=== PATIENT | female | born 1975 | race Caucasian/White ===

== ENCOUNTER 2022-08-26 11:15 | Outpatient (RCR) | payer OTHER, SELFPAY ==
--- NOTE | 2022-04-10 17:29 | PT.OIE ---
Current Diagnoses Unspecified urinary incontinence (04/10/22) Visit Care Team Role Provider Type Tomeka Conway ND Primary Care Provider Non-Staff Specialty: Naturopathy Address: [address] [place] [address], [id number] Email: Elodia Garcia ND Attending Provider Non-Staff Family Provider Referring Provider Specialty: Naturopathy Address: [facility] Sandra Adams, [address], [address] Email: Physical Therapy Initial Evaluation PT-OP-A Visit Information Start: 04/10/22 08:56 Freq: Status: Active Protocol: Document 04/10/22 11:20 [facility] (Rec: 04/10/22 11:49 [facility] [id number]) Out-Patient Physical Therapy Visit Information Visit Information Visit Type Initial Evaluation Visit Start Time 11:20 Visit Stop Time 12:00 Total Visit Minutes 40 Visit Number 1 Evaluation Information Evaluation Date 04/10/22 PT-OP-B Current Condition Start: 04/10/22 08:56 Freq: Status: Active Protocol: Document 04/10/22 11:20 [facility] (Rec: 04/10/22 11:49 [facility] [id number]) Current Condition History of Current Condition Onset Date 2006 Current Complaints urinary stress incontinence, right sided hip pain and tightness History of Current Condition oldest is 20 years old, she started noticiing when her second one was a baby and now he is 18, she noticed when running or coughing, her second baby was breach and she did tear, the past 3-5 years she has notcied more leaking and now she notes she leaks more. Lifting can cause leakage. Her bladder does not wake her up at night. She notices hormonal cyclical differences. She has a small hernia on the inguinal region, once and awhile it will be tender. 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 Treatment Goals Patient/Caregiver Goals to reduce overall symptoms of urinary stress incontinence PT-OP-I Pelvic Floor Start: 04/10/22 08:56 Freq: Status: Active Protocol: Document 04/10/22 11:20 [facility] (Rec: 04/10/22 12:18 [facility] [id number]) Pelvic Floor Assessment Urine Pelvic Floor Surgery No Other Urinary Symptoms when menstruating Zaida can feel symptoms of pelvic pressure and heaviness Leakage Size Medium Leakage Cause Exercise,Lifting,Sneeze Leaks Per Day 5-6 per week Voiding Frequency 7-10 times per day Nocturia wakes 0-1 times per night Pelvic Clock Pelvic Clock 3-6 Guarding Prolapse Uterine Prolapse Grade 2 Contraction Ability Voluntary Contraction Weak Voluntary Relaxation Weak Manual Muscle Testing Left 3 Manual Muscle Testing Right 3 Manual Muscle Testing Anterior 3 Manual Muscle Testing Posterior 3 Muscle Endurance (Seconds) 3 Comments Pelvic Floor Comments poor endurance with pt fredo shalondaamara after 1-2 sec hold. Left side from 3-6 on the pelvic clock is guarded and tender. PT-OP-J Posture/Palpation/Skin Start: 04/10/22 08:56 Freq: Status: Active Protocol: Document 04/10/22 11:20 [facility] (Rec: 04/10/22 11:49 [facility] [id number]) Palpation Assessment Location right iliopsoas Palpation Location right iliopsoas Palpation Findings Soft Tissue Tightness,Muscle Guarding,Tenderness Palpation Details + rambo test left inguinal hernia Palpation Location left inguinal region Palpation Findings Tenderness Palpation Details small inguinal hernia on the left side PT-OP-K Range of Motion Start: 04/10/22 08:56 Freq: Status: Active Protocol: Document 04/10/22 11:20 [facility] (Rec: 04/10/22 11:49 [facility] [id number]) Hip Goniometric Range of Motion Hip Right Hip ROM WFL No Testing Position Supine Comments decreased R hip flexion due to c/o impingement, decreased Right hip extension and + rambo test Hip ROM Limitations Hip ROM Limitations Soft Tissue Tightness Comments right iliopsoas tightness, tightness in the quads on the right side, pt notes she feels impinged on the right. IF she tries to stretch her hip she will feel more irritated afterwards PT-OP-Q Treatments Start: 04/10/22 08:56 Freq: Status: Active Protocol: Document 04/10/22 11:20 [facility] (Rec: 04/10/22 12:12 [facility] [id number]) Therapeutic Exercises Supine Exercises pelvic floor long holds Reps/Minutes 10 sec on 10 sec off x 10 reps 3 times per day Self-Care/Home Management Treatment Education Patient Education Home Exercise Program Other Education pt was instructed in a HEP for pelvic floor strengthening as well as education on pelvic floor bracing prior to lifting PT-OP-T Assessment and Plan Start: 04/10/22 08:56 Freq: Status: Active Protocol: Document 04/10/22 11:20 [facility] (Rec: 04/10/22 13:15 [facility] [id number]) Physical Therapy Assessment Goals 4 Impairment + rambo test on the right with iliopsoas tightness Short Term Goal (STG) Zaida is educated on stretches for the hip flexors for a HEP STG Duration 4 weeks Cement Grinding Mill Operator Goal (LTG) Zaida demonstrates improved length of the iliopsoas on the right decreasing right anterior hip pain LTG Duration 12 weeks 3 Impairment urinary stress incontinence leaking 5-6 times per week with strong cough or sneeze or lifting Cement Grinding Mill Operator Goal (LTG) With improved pelvic floor strength Zaida reports a overall reduction in urinary leakage LTG Duration 12 weeks 2 Impairment Decreased strength of the pelvic floor Cement Grinding Mill Operator Goal (LTG) Zaida is able to increase her strength from grade 3/5 MMT to grade 4/5 MMT for improved pelvic organ support LTG Duration 12 weeks 1 Impairment Decreased endurance of the pelvic floor Short Term Goal (STG) Zaida is able to sustain a pelvic floor contraction in supine x 10 seconds STG Duration 4 weeks Cement Grinding Mill Operator Goal (LTG) Zaida is able to sustain a pelvic floor contraction in standing x 10 seconds LTG Duration 12 weeks Assessment Summary Assessment Zaida is a 46 year old female referred to Physical Therapy with symptoms of urinary stress incontinence that have been worsening over time since 2006. She has had 2 vaginal deliveries with tearing. Zaida reports 5-6 times per week she will experinece leakage with a strong cough or sneeze or heavy lifting. She is wanting to strengthen to prevent any further symptoms. She does report symptoms of pelvic pressure when she is menstruating. With examination today Zaida is able facilitate all parts of her levator ani however she lacks endurance to sustain a contraction more than a few seconds. She test 3/5 MMT for all parts of the levator ani. She does have some guarding in the pelvic floor from 3-6 on the pelvic clock. There is a second degree uterine prolapse assessed in the supine position. The right iliopsoas is tight and guarded and Zaida presents with hip pain with hip flexion past 90 degrees. Zaida would benefit from pelvic floor endurance training and strengthening, working on hip mobility and core stability for the SI joint. She is a good candidatefor PT Physical Therapy Plan Frequency and Duration Frequency of Treatment 1x/Week Duration of treatment (weeks) 12 Plan of Care Start Date 04/10/22 Plan of Care End Date 07/05/22 Therapeutic Interventions Therapeutic Interventions Home Exercise Program,Manual Therapy,Neuromuscular Re- education,Patient/Caregiver Education,Self-Care/Home Management,Soft Tissue Mobilization,Therapeutic Exercises Modalities Biofeedback,Cold Pack/Ice Massage,Electric Stimulation Next Visit Focus/Plan Next Note Type Treatment Note Next Visit Plan Begin EMG biofeedback next visit working on endurance holds of the pelvic floor.
--- NOTE | 2022-04-10 17:30 | PT.OPPOC ---
Physical, Occupational & Speech Therapy At [facility] Current Diagnoses Unspecified urinary incontinence (04/10/22) Visit Care Team Role Provider Type Tomeka Conway ND Primary Care Provider Non-Staff Specialty: Naturopathy Address: [address] [place] [address], [phone] Email: Elodia Garcia ND Attending Provider Non-Staff Family Provider Referring Provider Specialty: Naturopathy Address: [facility] Sandra [address], [address], [place], [address] Email: Plan Of Care PT-OP-T Assessment and Plan Start: 04/10/22 08:56 Freq: Status: Active Protocol: Document 04/10/22 11:20 [facility] (Rec: 04/10/22 13:15 [facility] [id number]) Physical Therapy Assessment Goals 4 Impairment + rambo test on the right with iliopsoas tightness Short Term Goal (STG) Zaida is educated on stretches for the hip flexors for a HEP STG Duration 4 weeks Long-Term Goal (LTG) Zaida demonstrates improved length of the iliopsoas on the right decreasing right anterior hip pain LTG Duration 12 weeks 3 Impairment urinary stress incontinence leaking 5-6 times per week with strong cough or sneeze or lifting Long-Term Goal (LTG) With improved pelvic floor strength Zaida reports a overall reduction in urinary leakage LTG Duration 12 weeks 2 Impairment Decreased strength of the pelvic floor Crutching Contractor Goal (LTG) Zaida is able to increase her strength from grade 3/5 MMT to grade 4/5 MMT for improved pelvic organ support LTG Duration 12 weeks 1 Impairment Decreased endurance of the pelvic floor Short Term Goal (STG) Zaida is able to sustain a pelvic floor contraction in supine x 10 seconds STG Duration 4 weeks Long-Term Goal (LTG) Zaida is able to sustain a pelvic floor contraction in standing x 10 seconds LTG Duration 12 weeks Assessment Summary Assessment Zaida is a 46 year old female referred to Physical Therapy with symptoms of urinary stress incontinence that have been worsening over time since 2006. She has had 2 vaginal deliveries with tearing. Zaida reports 5-6 times per week she will experience leakage with a strong cough or sneeze or heavy lifting. She is wanting to strengthen to prevent any further symptoms. She does report symptoms of pelvic pressure when she is menstruating. With examination today Zaida is able facilitate all parts of her levator ani however she lacks endurance to sustain a contraction more than a few seconds. She test 3/5 MMT for all parts of the levator ani. She does have some guarding in the pelvic floor from 3-6 on the pelvic clock. There is a second degree uterine prolapse assessed in the supine position. The right iliopsoas is tight and guarded and Zaida presents with hip pain with hip flexion past 90 degrees. Zaida would benefit from pelvic floor endurance training and strengthening, working on hip mobility and core stability for the SI joint. She is a good candidate for PT Physical Therapy Plan Frequency and Duration Frequency of Treatment 1x/Week Duration of treatment (weeks) 12 Plan of Care Start Date 04/10/22 Plan of Care End Date 07/05/22 Therapeutic Interventions Therapeutic Interventions Home Exercise Program,Manual Therapy,Neuromuscular Re- education,Patient/Caregiver Education,Self-Care/Home Management,Soft Tissue Mobilization,Therapeutic Exercises Modalities Biofeedback,Cold Pack/Ice Massage,Electric Stimulation Next Visit Focus/Plan Next Note Type Treatment Note Next Visit Plan Begin EMG biofeedback next visit working on endurance holds of the pelvic floor. Plan of Care Dates Plan of Care Start Date 04/10/22 Plan of Care End Date 07/05/22 Electronically Signed by: Rere Delgado, PT 04/15/22 6704 If you are in agreement with this Plan of Care, please return a signed and dated copy. I have reviewed this Plan of Care and certify that the skilled therapy services above are required to meet the patient?s needs. Physician Signature Date Printed Name and Credentials Clinical Instructor Signature Printed Name and Credentials
--- NOTE | 2022-04-17 17:18 | PT.OTN ---
Current Diagnoses Unspecified urinary incontinence (04/17/22) Physical Therapy Treatment Note PT-OP-A Visit Information Start: 04/10/22 08:56 Freq: Status: Active Protocol: Document 04/17/22 16:06 [facility] (Rec: 04/17/22 17:18 [facility] [id number]) Out-Patient Physical Therapy Visit Information Visit Information Visit Type Treatment Note Visit Start Time 16:05 Visit Stop Time 16:55 Total Visit Minutes 45 Visit Number 2 PT-OP-B Current Condition Start: 04/10/22 08:56 Freq: Status: Active Protocol: Document 04/10/22 11:20 [facility] (Rec: 04/10/22 11:49 [facility] [id number]) Current Condition History of Current Condition Onset Date 2006 Current Complaints urinary stress incontinence, right sided hip pain and tightness History of Current Condition oldest is 20 years old, she started noticiing when her second one was a baby and now he is 18, she noticed when running or coughing, her second baby was breach and she did tear, the past 3-5 years she has notcied more leaking and now she notes she leaks more. Lifting can cause leakage. Her bladder does not wake her up at night. She notices hormonal cyclical differences. She has a small hernia on the inguinal region, once and awhile it will be tender. 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 Treatment Goals Patient/Caregiver Goals to reduce overall symptoms of urinary stress incontinence PT-OP-C Subjective Start: 04/10/22 08:56 Freq: Status: Active Protocol: Document 04/17/22 16:06 [facility] (Rec: 04/17/22 17:17 [facility] [id number]) OP-PT Subjective Patient Comments Patient Comments pt notes when she is standing how much she is bracinwith her right hip , she also feels her right hip when doing her pelvic floor exercises wanting to guard. PT-OP-I Pelvic Floor Start: 04/10/22 08:56 Freq: Status: Active Protocol: Document 04/17/22 16:06 [facility] (Rec: 04/17/22 17:17 [facility] [id number]) Pelvic Floor Assessment Urine Pelvic Floor Surgery No Other Urinary Symptoms when menstruating Zaida can feel symptoms of pelvic pressure and heaviness Leakage Size Medium Leakage Cause Exercise,Lifting,Sneeze Leaks Per Day 5-6 per week Voiding Frequency 7-10 times per day Nocturia wakes 0-1 times per night Pelvic Clock Pelvic Clock 3-6 Guarding Comments Pelvic Floor Comments poor endurance with pt fredo anaya after 1-2 sec hold. Left side from 3-6 on the pelvic clock is guarded and tender. PT-OP-J Posture/Palpation/Skin Start: 04/10/22 08:56 Freq: Status: Active Protocol: Document 04/10/22 11:20 [facility] (Rec: 04/10/22 11:49 [facility] [id number]) Palpation Assessment Location right iliopsoas Palpation Location right iliopsoas Palpation Findings Soft Tissue Tightness,Muscle Guarding,Tenderness Palpation Details + rambo test left inguinal hernia Palpation Location left inguinal region Palpation Findings Tenderness Palpation Details small inguinal hernia on the left side PT-OP-K Range of Motion Start: 04/10/22 08:56 Freq: Status: Active Protocol: Document 04/10/22 11:20 [facility] (Rec: 04/10/22 11:49 [facility] [id number]) Hip Goniometric Range of Motion Hip Right Hip ROM WFL No Testing Position Supine Comments decreased R hip flexion due to c/o impingement, decreased Right hip extension and + rambo test Hip ROM Limitations Hip ROM Limitations Soft Tissue Tightness Comments right iliopsoas tightness, tightness in the quads on the right side, pt notes she feels impinged on the right. IF she tries to stretch her hip she will feel more irritated afterwards PT-OP-Q Treatments Start: 04/10/22 08:56 Freq: Status: Active Protocol: Document 04/17/22 16:06 [facility] (Rec: 04/17/22 17:17 [facility] [id number]) Therapeutic Exercises Supine Exercises quick flicks Reps/Minutes x 10 reps pelvic floor long holds Reps/Minutes 24.4 44 max Sidelying Exercises clam shells Reps/Minutes 2 x10 Other Exercises cat cow Reps/Minutes x 10 reps Manual Therapy Treatment Manual Techniques gentle hip distraction Comments worked both in supine and quadruped for hip distraction lateral distraction helped some in quadruped but did not fully take off pain Neuro Re-Education Treatment Other Activities NMES Details NMES for the levator ani Comments trial of NMES as Zaida has the yarlap at home and wants to be able to use it but felt she over did it last time she tried to use it. Zaida tolerated NMES at at low level today PT-OP-T Assessment and Plan Start: 04/10/22 08:56 Freq: Status: Active Protocol: Document 04/17/22 16:06 [facility] (Rec: 04/17/22 17:17 [facility] [id number]) Physical Therapy Assessment Goals 4 Impairment + rambo test on the right with iliopsoas tightness Short Term Goal (STG) Zaida is educated on stretches for the hip flexors for a HEP STG Duration 4 weeks Electronic Prepress System Operator Goal (LTG) Zaida demonstrates improved length of the iliopsoas on the right decreasing right anterior hip pain LTG Duration 12 weeks 3 Impairment urinary stress incontinence leaking 5-6 times per week with strong cough or sneeze or lifting Electronic Prepress System Operator Goal (LTG) With improved pelvic floor strength Zaida reports a overall reduction in urinary leakage LTG Duration 12 weeks 2 Impairment Decreased strength of the pelvic floor Electronic Prepress System Operator Goal (LTG) Zaida is able to increase her strength from grade 3/5 MMT to grade 4/5 MMT for improved pelvic organ support LTG Duration 12 weeks 1 Impairment Decreased endurance of the pelvic floor Short Term Goal (STG) Zaida is able to sustain a pelvic floor contraction in supine x 10 seconds STG Duration 4 weeks Electronic Prepress System Operator Goal (LTG) Zaida is able to sustain a pelvic floor contraction in standing x 10 seconds LTG Duration 12 weeks Assessment Summary Assessment pelvic floor was elevated inititally at 5, pt able to get to 1.5 uv then to baseline when laying on her side. Her hip does bother her in supine and this may increase her pelvic floor tone. Endurance looked better today and Zaida has been working on her exercises at home. I added in quick contractions as well as clam shells for her. She mentioned today she had mild hip dysplasia as a child Physical Therapy Plan Frequency and Duration Frequency of Treatment 1x/Week Duration of treatment (weeks) 12 Plan of Care Start Date 04/10/22 Plan of Care End Date 07/05/22 Therapeutic Interventions Therapeutic Interventions Home Exercise Program,Manual Therapy,Neuromuscular Re- education,Patient/Caregiver Education,Self-Care/Home Management,Soft Tissue Mobilization,Therapeutic Exercises Modalities Biofeedback,Cold Pack/Ice Massage,Electric Stimulation Next Visit Focus/Plan Next Note Type Treatment Note Next Visit Plan continue working on relaxing the right quad and iliopsoas, work on endurance holds for the pelvic floor
--- NOTE | 2022-04-22 17:35 | PT.OTN ---
Current Diagnoses Unspecified urinary incontinence (04/22/22) Physical Therapy Treatment Note PT-OP-A Visit Information Start: 04/10/22 08:56 Freq: Status: Active Protocol: Document 04/22/22 11:31 [facility] (Rec: 04/22/22 12:28 [facility] [id number]) Out-Patient Physical Therapy Visit Information Visit Information Visit Type Treatment Note Visit Start Time 11:30 Visit Stop Time 12:15 Total Visit Minutes 45 Visit Number 3 PT-OP-B Current Condition Start: 04/10/22 08:56 Freq: Status: Active Protocol: Document 04/10/22 11:20 [facility] (Rec: 04/10/22 11:49 [facility] [id number]) Current Condition History of Current Condition Onset Date 2006 Current Complaints urinary stress incontinence, right sided hip pain and tightness History of Current Condition oldest is 20 years old, she started noticiing when her second one was a baby and now he is 18, she noticed when running or coughing, her second baby was breach and she did tear, the past 3-5 years she has notcied more leaking and now she notes she leaks more. Lifting can cause leakage. Her bladder does not wake her up at night. She notices hormonal cyclical differences. She has a small hernia on the inguinal region, once and awhile it will be tender. 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 Treatment Goals Patient/Caregiver Goals to reduce overall symptoms of urinary stress incontinence PT-OP-C Subjective Start: 04/10/22 08:56 Freq: Status: Active Protocol: Document 04/22/22 11:31 [facility] (Rec: 04/22/22 12:28 [facility] [id number]) OP-PT Subjective Patient Comments Patient Comments pt notes she got late last , she had a 4 hour flight and had to get on the shuttle afterwards With the clam shells she notes the right side is very weak and it fatigues very fast PT-OP-I Pelvic Floor Start: 04/10/22 08:56 Freq: Status: Active Protocol: Document 04/17/22 16:06 [facility] (Rec: 04/17/22 17:17 [facility] [id number]) Pelvic Floor Assessment Urine Pelvic Floor Surgery No Other Urinary Symptoms when menstruating Zaida can feel symptoms of pelvic pressure and heaviness Leakage Size Medium Leakage Cause Exercise,Lifting,Sneeze Leaks Per Day 5-6 per week Voiding Frequency 7-10 times per day Nocturia wakes 0-1 times per night Pelvic Clock Pelvic Clock 3-6 Guarding Comments Pelvic Floor Comments poor endurance with pt annjamal anaya after 1-2 sec hold. Left side from 3-6 on the pelvic clock is guarded and tender. PT-OP-J Posture/Palpation/Skin Start: 04/10/22 08:56 Freq: Status: Active Protocol: Document 04/10/22 11:20 [facility] (Rec: 04/10/22 11:49 [facility] [id number]) Palpation Assessment Location right iliopsoas Palpation Location right iliopsoas Palpation Findings Soft Tissue Tightness,Muscle Guarding,Tenderness Palpation Details + rambo test left inguinal hernia Palpation Location left inguinal region Palpation Findings Tenderness Palpation Details small inguinal hernia on the left side PT-OP-K Range of Motion Start: 04/10/22 08:56 Freq: Status: Active Protocol: Document 04/10/22 11:20 [facility] (Rec: 04/10/22 11:49 [facility] [id number]) Hip Goniometric Range of Motion Hip Right Hip ROM WFL No Testing Position Supine Comments decreased R hip flexion due to c/o impingement, decreased Right hip extension and + rambo test Hip ROM Limitations Hip ROM Limitations Soft Tissue Tightness Comments right iliopsoas tightness, tightness in the quads on the right side, pt notes she feels impinged on the right. IF she tries to stretch her hip she will feel more irritated afterwards PT-OP-Q Treatments Start: 04/10/22 08:56 Freq: Status: Active Protocol: Document 04/22/22 11:31 [facility] (Rec: 04/22/22 12:28 [facility] [id number]) Therapeutic Exercises Supine Exercises roll outs with theraband Reps/Minutes x 5 supine ball squeeze with pelvic floor contraction Reps/Minutes x 10 reps Comments holding for 5 and relaxing x 5 , this helped reduce pelvic floor tone pelvic floor long holds Reps/Minutes 22.1 36.3 Manual Therapy Treatment Soft Tissue Mobilization right quad and iliopsoas Body Position Supine Manual Techniques manual hip posterior glides Body Position Supine Comments good tolerance for posterior glides and pt notes good relief gentle hip distraction Type right hip Comments today worked in supine only for manual hip distraction in hip flexion position PT-OP-T Assessment and Plan Start: 04/10/22 08:56 Freq: Status: Active Protocol: Document 04/22/22 11:31 [facility] (Rec: 04/22/22 12:28 [facility] [id number]) Physical Therapy Assessment Goals 4 Impairment + rambo test on the right with iliopsoas tightness Short Term Goal (STG) Zaida is educated on stretches for the hip flexors for a HEP STG Duration 4 weeks Senior Care Goal (LTG) Zaida demonstrates improved length of the iliopsoas on the right decreasing right anterior hip pain LTG Duration 12 weeks 3 Impairment urinary stress incontinence leaking 5-6 times per week with strong cough or sneeze or lifting Commercial Coordinator Goal (LTG) With improved pelvic floor strength Zaida reports a overall reduction in urinary leakage LTG Duration 12 weeks 2 Impairment Decreased strength of the pelvic floor Senior Care Goal (LTG) Zaida is able to increase her strength from grade 3/5 MMT to grade 4/5 MMT for improved pelvic organ support LTG Duration 12 weeks 1 Impairment Decreased endurance of the pelvic floor Short Term Goal (STG) Zaida is able to sustain a pelvic floor contraction in supine x 10 seconds STG Duration 4 weeks Commercial Coordinator Goal (LTG) Zaida is able to sustain a pelvic floor contraction in standing x 10 seconds LTG Duration 12 weeks Assessment Summary Assessment pt notes that clam shells irritated her hip some so roll outs were tried today. This was still a little tight on her hip but she is going to test it out for home Physical Therapy Plan Frequency and Duration Frequency of Treatment 1x/Week Duration of treatment (weeks) 12 Plan of Care Start Date 04/10/22 Plan of Care End Date 07/05/22 Therapeutic Interventions Therapeutic Interventions Home Exercise Program,Manual Therapy,Neuromuscular Re- education,Patient/Caregiver Education,Self-Care/Home Management,Soft Tissue Mobilization,Therapeutic Exercises Modalities Biofeedback,Cold Pack/Ice Massage,Electric Stimulation Next Visit Focus/Plan Next Note Type Treatment Note Next Visit Plan continue releasing the iliopsoas on the right, begin TA stabilization exercises, continue with pelvic floor
--- NOTE | 2022-04-29 12:22 | PT.OTN ---
Current Diagnoses Unspecified urinary incontinence (04/29/22) Physical Therapy Treatment Note PT-OP-A Visit Information Start: 04/10/22 08:56 Freq: Status: Active Protocol: Document 04/29/22 11:18 [facility] (Rec: 04/29/22 12:22 [facility] [id number]) Out-Patient Physical Therapy Visit Information Visit Information Visit Type Treatment Note Visit Start Time 11:15 Visit Stop Time 12:00 Total Visit Minutes 45 Visit Number 4 PT-OP-B Current Condition Start: 04/10/22 08:56 Freq: Status: Active Protocol: Document 04/10/22 11:20 [facility] (Rec: 04/10/22 11:49 [facility] [id number]) Current Condition History of Current Condition Onset Date 2006 Current Complaints urinary stress incontinence, right sided hip pain and tightness History of Current Condition oldest is 20 years old, she started noticiing when her second one was a baby and now he is 18, she noticed when running or coughing, her second baby was breach and she did tear, the past 3-5 years she has notcied more leaking and now she notes she leaks more. Lifting can cause leakage. Her bladder does not wake her up at night. She notices hormonal cyclical differences. She has a small hernia on the inguinal region, once and awhile it will be tender. 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 She does feel her pelvic floor is getting stronger and no leaks this past week She has been able to use the yarlap 8 sec on and 8 sec off and has tolerated it well. PT-OP-I Pelvic Floor Start: 04/10/22 08:56 Freq: Status: Active Protocol: Document 04/17/22 16:06 [facility] (Rec: 04/17/22 17:17 [facility] [id number]) Pelvic Floor Assessment Urine Pelvic Floor Surgery No Other Urinary Symptoms when menstruating Zaida can feel symptoms of pelvic pressure and heaviness Leakage Size Medium Leakage Cause Exercise,Lifting,Sneeze Leaks Per Day 5-6 per week Voiding Frequency 7-10 times per day Nocturia wakes 0-1 times per night Pelvic Clock Pelvic Clock 3-6 Guarding Comments Pelvic Floor Comments poor endurance with pt zayabhishek anaya after 1-2 sec hold. Left side from 3-6 on the pelvic clock is guarded and tender. PT-OP-J Posture/Palpation/Skin Start: 04/10/22 08:56 Freq: Status: Active Protocol: Document 04/10/22 11:20 [facility] (Rec: 04/10/22 11:49 [facility] [id number]) Palpation Assessment Location right iliopsoas Palpation Location right iliopsoas Palpation Findings Soft Tissue Tightness,Muscle Guarding,Tenderness Palpation Details + rambo test left inguinal hernia Palpation Location left inguinal region Palpation Findings Tenderness Palpation Details small inguinal hernia on the left side PT-OP-K Range of Motion Start: 04/10/22 08:56 Freq: Status: Active Protocol: Document 04/10/22 11:20 [facility] (Rec: 04/10/22 11:49 [facility] [id number]) Hip Goniometric Range of Motion Hip Right Hip ROM WFL No Testing Position Supine Comments decreased R hip flexion due to c/o impingement, decreased Right hip extension and + rambo test Hip ROM Limitations Hip ROM Limitations Soft Tissue Tightness Comments right iliopsoas tightness, tightness in the quads on the right side, pt notes she feels impinged on the right. IF she tries to stretch her hip she will feel more irritated afterwards PT-OP-Q Treatments Start: 04/10/22 08:56 Freq: Status: Active Protocol: Document 04/29/22 11:18 [facility] (Rec: 04/29/22 12:22 [facility] [id number]) Therapeutic Exercises Supine Exercises quick flicks Reps/Minutes x 10 reps pelvic floor long holds Reps/Minutes 24.4 uv max 38. Other Exercises templates for eccentric control and coordination Reps/Minutes x 10 reps Comments templates for eccentric control Self-Care/Home Management Treatment Education Patient Education Home Exercise Program Other Education pt educated in [facility] for eccentric contraction of her pelvic floor. She was educated on bracing with her pelvic floor prior to lifting. Added in dynamic hamstring stretching PT-OP-T Assessment and Plan Start: 04/10/22 08:56 Freq: Status: Active Protocol: Document 04/29/22 11:18 [facility] (Rec: 04/29/22 12:22 [facility] [id number]) Physical Therapy Assessment Goals 4 Impairment + rambo test on the right with iliopsoas tightness Short Term Goal (STG) Zaida is educated on stretches for the hip flexors for a HEP STG Duration 4 weeks Program Counselor Goal (LTG) Zaida demonstrates improved length of the iliopsoas on the right decreasing right anterior hip pain LTG Duration 12 weeks 3 Impairment urinary stress incontinence leaking 5-6 times per week with strong cough or sneeze or lifting Program Counselor Goal (LTG) With improved pelvic floor strength Zaida reports a overall reduction in urinary leakage LTG Duration 12 weeks 2 Impairment Decreased strength of the pelvic floor Program Counselor Goal (LTG) Zaida is able to increase her strength from grade 3/5 MMT to grade 4/5 MMT for improved pelvic organ support LTG Duration 12 weeks 1 Impairment Decreased endurance of the pelvic floor Short Term Goal (STG) Zaida is able to sustain a pelvic floor contraction in supine x 10 seconds STG Duration 4 weeks Program Counselor Goal (LTG) Zaida is able to sustain a pelvic floor contraction in standing x 10 seconds LTG Duration 12 weeks Assessment Summary Assessment Zaida is flared in her right hip and it seems if she tries to stretch her right hip anteriorly she is in more of a flare. She does have a history of hip dysplasia as a child. Today we worked on releasing the posterior hip with dynamic hamstring stretch . I also added in templates for eccentric control. She tolerated this well. Physical Therapy Plan Frequency and Duration Frequency of Treatment 1x/Week Duration of treatment (weeks) 12 Plan of Care Start Date 04/10/22 Plan of Care End Date 07/05/22 Therapeutic Interventions Therapeutic Interventions Home Exercise Program,Manual Therapy,Neuromuscular Re- education,Patient/Caregiver Education,Self-Care/Home Management,Soft Tissue Mobilization,Therapeutic Exercises Modalities Biofeedback,Cold Pack/Ice Massage,Electric Stimulation Next Visit Focus/Plan Next Note Type Treatment Note Next Visit Plan Work on TA in quadruped next visit prior to pelvic floor with EMG biofeedback, add in TA with marches in supine
--- NOTE | 2022-05-07 11:43 | PT.OTN ---
Current Diagnoses Unspecified urinary incontinence (05/06/22) Physical Therapy Treatment Note PT-OP-A Visit Information Start: 04/10/22 08:56 Freq: Status: Active Protocol: Document 05/06/22 11:30 [facility] (Rec: 05/06/22 12:26 [facility] [id number]) Out-Patient Physical Therapy Visit Information Visit Information Visit Type Treatment Note Visit Start Time 11:30 Visit Stop Time 12:15 Total Visit Minutes 45 Visit Number 5 PT-OP-B Current Condition Start: 04/10/22 08:56 Freq: Status: Active Protocol: Document 04/10/22 11:20 [facility] (Rec: 04/10/22 11:49 [facility] [id number]) Current Condition History of Current Condition Onset Date 2006 Current Complaints urinary stress incontinence, right sided hip pain and tightness History of Current Condition oldest is 20 years old, she started noticiing when her second one was a baby and now he is 18, she noticed when running or coughing, her second baby was breach and she did tear, the past 3-5 years she has notcied more leaking and now she notes she leaks more. Lifting can cause leakage. Her bladder does not wake her up at night. She notices hormonal cyclical differences. She has a small hernia on the inguinal region, once and awhile it will be tender. 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 Treatment Goals Patient/Caregiver Goals to reduce overall symptoms of urinary stress incontinence PT-OP-C Subjective Start: 04/10/22 08:56 Freq: Status: Active Protocol: Document 05/06/22 11:30 [facility] (Rec: 05/06/22 12:26 [facility] [id number]) OP-PT Subjective Patient Comments Patient Comments Pt notes she has not had any leakage, her hip and her back hurts PT-OP-I Pelvic Floor Start: 04/10/22 08:56 Freq: Status: Active Protocol: Document 04/17/22 16:06 [facility] (Rec: 04/17/22 17:17 [facility] [id number]) Pelvic Floor Assessment Urine Pelvic Floor Surgery No Other Urinary Symptoms when menstruating Zaida can feel symptoms of pelvic pressure and heaviness Leakage Size Medium Leakage Cause Exercise,Lifting,Sneeze Leaks Per Day 5-6 per week Voiding Frequency 7-10 times per day Nocturia wakes 0-1 times per night Pelvic Clock Pelvic Clock 3-6 Guarding Comments Pelvic Floor Comments poor endurance with pt fredo anaya after 1-2 sec hold. Left side from 3-6 on the pelvic clock is guarded and tender. PT-OP-J Posture/Palpation/Skin Start: 04/10/22 08:56 Freq: Status: Active Protocol: Document 04/10/22 11:20 [facility] (Rec: 04/10/22 11:49 [facility] [id number]) Palpation Assessment Location right iliopsoas Palpation Location right iliopsoas Palpation Findings Soft Tissue Tightness,Muscle Guarding,Tenderness Palpation Details + rambo test left inguinal hernia Palpation Location left inguinal region Palpation Findings Tenderness Palpation Details small inguinal hernia on the left side PT-OP-K Range of Motion Start: 04/10/22 08:56 Freq: Status: Active Protocol: Document 04/10/22 11:20 [facility] (Rec: 04/10/22 11:49 [facility] [id number]) Hip Goniometric Range of Motion Hip Right Hip ROM WFL No Testing Position Supine Comments decreased R hip flexion due to c/o impingement, decreased Right hip extension and + rambo test Hip ROM Limitations Hip ROM Limitations Soft Tissue Tightness Comments right iliopsoas tightness, tightness in the quads on the right side, pt notes she feels impinged on the right. IF she tries to stretch her hip she will feel more irritated afterwards PT-OP-Q Treatments Start: 04/10/22 08:56 Freq: Status: Active Protocol: Document 05/06/22 11:30 [facility] (Rec: 05/06/22 12:26 [facility] [id number]) Therapeutic Exercises Supine Exercises TA with heel slides Reps/Minutes x 5 reps each supine TA with marches Reps/Minutes 10-20 reps supine ball squeeze with pelvic floor contraction Reps/Minutes x 10 reps quick flicks Reps/Minutes x 10 reps pelvic floor long holds Reps/Minutes 27.8 average max 37.8 Other Exercises quadruped TA isolations Reps/Minutes x 10 templates for eccentric control and coordination Reps/Minutes x 10 reps Comments templates for eccentric control cat cow Reps/Minutes x 10 reps PT-OP-T Assessment and Plan Start: 04/10/22 08:56 Freq: Status: Active Protocol: Document 05/06/22 11:25 [facility] (Rec: 05/07/22 11:43 [facility] [id number]) Physical Therapy Assessment Assessment Summary Assessment Zaida continues to show improvement with her pelvic floor endurance strength on EMG biofeedback. She tolerated additional TA stabilization exercises added in today. Physical Therapy Plan Frequency and Duration Frequency of Treatment 1x/Week Duration of treatment (weeks) 12 Plan of Care Start Date 04/10/22 Plan of Care End Date 07/05/22 Therapeutic Interventions Therapeutic Interventions Home Exercise Program,Manual Therapy,Neuromuscular Re- education,Patient/Caregiver Education,Self-Care/Home Management,Soft Tissue Mobilization,Therapeutic Exercises Modalities Biofeedback,Cold Pack/Ice Massage,Electric Stimulation Next Visit Focus/Plan Next Note Type Treatment Note Next Visit Plan continue to work on TA stabilization exercises, add in sidebends in quadruped next visit
--- NOTE | 2022-05-13 14:12 | PT.OTN ---
Current Diagnoses Unspecified urinary incontinence (05/13/22) Physical Therapy Treatment Note PT-OP-A Visit Information Start: 04/10/22 08:56 Freq: Status: Active Protocol: Document 05/13/22 11:21 [facility] (Rec: 05/14/22 14:10 [facility] [id number]) Out-Patient Physical Therapy Visit Information Visit Information Visit Type Treatment Note Visit Start Time 11:20 Visit Stop Time 12:05 Total Visit Minutes 45 Visit Number 6 PT-OP-B Current Condition Start: 04/10/22 08:56 Freq: Status: Active Protocol: Document 04/10/22 11:20 [facility] (Rec: 04/10/22 11:49 [facility] [id number]) Current Condition History of Current Condition Onset Date 2006 Current Complaints urinary stress incontinence, right sided hip pain and tightness History of Current Condition oldest is 20 years old, she started noticiing when her second one was a baby and now he is 18, she noticed when running or coughing, her second baby was breach and she did tear, the past 3-5 years she has notcied more leaking and now she notes she leaks more. Lifting can cause leakage. Her bladder does not wake her up at night. She notices hormonal cyclical differences. She has a small hernia on the inguinal region, once and awhile it will be tender. 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 Treatment Goals Patient/Caregiver Goals to reduce overall symptoms of urinary stress incontinence PT-OP-C Subjective Start: 04/10/22 08:56 Freq: Status: Active Protocol: Document 05/13/22 11:21 [facility] (Rec: 05/13/22 12:10 [facility] [id number]) OP-PT Subjective Patient Comments Patient Comments pt notes that if her hip gets aggravated then it gets everything off, gusha scraping really helps, she does notice tenderness in the midial quad . SHe is finishing her period and she can tell a difference when she is on her cycle, she feels closer to leaking when on her cycle but she hasn't leaked PT-OP-I Pelvic Floor Start: 04/10/22 08:56 Freq: Status: Active Protocol: Document 04/17/22 16:06 [facility] (Rec: 04/17/22 17:17 [facility] [id number]) Pelvic Floor Assessment Urine Pelvic Floor Surgery No Other Urinary Symptoms when menstruating Zaida can feel symptoms of pelvic pressure and heaviness Leakage Size Medium Leakage Cause Exercise,Lifting,Sneeze Leaks Per Day 5-6 per week Voiding Frequency 7-10 times per day Nocturia wakes 0-1 times per night Pelvic Clock Pelvic Clock 3-6 Guarding Comments Pelvic Floor Comments poor endurance with pt fredo anaya after 1-2 sec hold. Left side from 3-6 on the pelvic clock is guarded and tender. PT-OP-J Posture/Palpation/Skin Start: 04/10/22 08:56 Freq: Status: Active Protocol: Document 04/10/22 11:20 [facility] (Rec: 04/10/22 11:49 [facility] [id number]) Palpation Assessment Location right iliopsoas Palpation Location right iliopsoas Palpation Findings Soft Tissue Tightness,Muscle Guarding,Tenderness Palpation Details + rambo test left inguinal hernia Palpation Location left inguinal region Palpation Findings Tenderness Palpation Details small inguinal hernia on the left side PT-OP-K Range of Motion Start: 04/10/22 08:56 Freq: Status: Active Protocol: Document 04/10/22 11:20 [facility] (Rec: 04/10/22 11:49 [facility] [id number]) Hip Goniometric Range of Motion Hip Right Hip ROM WFL No Testing Position Supine Comments decreased R hip flexion due to c/o impingement, decreased Right hip extension and + rambo test Hip ROM Limitations Hip ROM Limitations Soft Tissue Tightness Comments right iliopsoas tightness, tightness in the quads on the right side, pt notes she feels impinged on the right. IF she tries to stretch her hip she will feel more irritated afterwards PT-OP-Q Treatments Start: 04/10/22 08:56 Freq: Status: Active Protocol: Document 05/13/22 11:21 [facility] (Rec: 05/13/22 12:10 [facility] [id number]) Therapeutic Exercises Supine Exercises the hundred pilates exercises Reps/Minutes pt to work up to 100 reps as she is able TA with SLR Reps/Minutes x 10 -15 Other Exercises quadruped sidebends Reps/Minutes x 5 each side Manual Therapy Treatment Soft Tissue Mobilization right quad and iliopsoas Body Position Supine Comments gusha was used over the quad in iliopsoas, pt has a gusha at home and requested assistance on how to use PT-OP-T Assessment and Plan Start: 04/10/22 08:56 Freq: Status: Active Protocol: Document 05/13/22 11:21 [facility] (Rec: 05/14/22 14:10 [facility] [id number]) Physical Therapy Assessment Assessment Summary Assessment Worked on increasing TA stabilization exercises today as well as MFR over the right quadriceps with the gusha as pt has this at home and wanted to be able to use it. Physical Therapy Plan Frequency and Duration Frequency of Treatment 1x/Week Duration of treatment (weeks) 12 Plan of Care Start Date 04/10/22 Plan of Care End Date 07/05/22 Therapeutic Interventions Therapeutic Interventions Home Exercise Program,Manual Therapy,Neuromuscular Re- education,Patient/Caregiver Education,Self-Care/Home Management,Soft Tissue Mobilization,Therapeutic Exercises Modalities Biofeedback,Cold Pack/Ice Massage,Electric Stimulation Next Visit Focus/Plan Next Note Type Treatment Note Next Visit Plan revisit pelvic floor strength next visit and see how Zaida is doing with her MFR techniques for home
--- NOTE | 2022-06-24 15:11 | PT.OTN ---
Current Diagnoses Unspecified urinary incontinence (06/24/22) Physical Therapy Treatment Note PT-OP-A Visit Information Start: 04/10/22 08:56 Freq: Status: Active Protocol: Document 06/24/22 13:03 [facility] (Rec: 06/24/22 13:17 [facility] [id number]) Out-Patient Physical Therapy Visit Information Visit Information Visit Type Progress Note Visit Start Time 13:00 Visit Stop Time 13:45 Total Visit Minutes 45 Visit Number 7 PT-OP-B Current Condition Start: 04/10/22 08:56 Freq: Status: Active Protocol: Document 04/10/22 11:20 [facility] (Rec: 04/10/22 11:49 [facility] [id number]) Current Condition History of Current Condition Onset Date 2006 Current Complaints urinary stress incontinence, right sided hip pain and tightness History of Current Condition oldest is 20 years old, she started noticiing when her second one was a baby and now he is 18, she noticed when running or coughing, her second baby was breach and she did tear, the past 3-5 years she has notcied more leaking and now she notes she leaks more. Lifting can cause leakage. Her bladder does not wake her up at night. She notices hormonal cyclical differences. She has a small hernia on the inguinal region, once and awhile it will be tender. 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 Treatment Goals Patient/Caregiver Goals to reduce overall symptoms of urinary stress incontinence PT-OP-C Subjective Start: 04/10/22 08:56 Freq: Status: Active Protocol: Document 06/24/22 13:03 [facility] (Rec: 06/24/22 13:17 [facility] [id number]) OP-PT Subjective Patient Comments Patient Comments pt reports her thyroid was really off so she hasn't been working on exercises as much as she has been so tired. She hasn't been noting as much pelvic floor issues and overall she has not been experiencing the leakage she was. Patient Reported Progress Improving PT-OP-I Pelvic Floor Start: 04/10/22 08:56 Freq: Status: Active Protocol: Document 06/24/22 13:17 [facility] (Rec: 06/24/22 13:24 [facility] [id number]) Pelvic Floor Assessment Contraction Ability Voluntary Contraction Moderate Voluntary Relaxation Moderate Manual Muscle Testing Left 4 Manual Muscle Testing Right 4 Manual Muscle Testing Anterior 4 Manual Muscle Testing Posterior 4 PT-OP-J Posture/Palpation/Skin Start: 04/10/22 08:56 Freq: Status: Active Protocol: Document 04/10/22 11:20 [facility] (Rec: 04/10/22 11:49 [facility] [id number]) Palpation Assessment Location right iliopsoas Palpation Location right iliopsoas Palpation Findings Soft Tissue Tightness,Muscle Guarding,Tenderness Palpation Details + rambo test left inguinal hernia Palpation Location left inguinal region Palpation Findings Tenderness Palpation Details small inguinal hernia on the left side PT-OP-K Range of Motion Start: 04/10/22 08:56 Freq: Status: Active Protocol: Document 04/10/22 11:20 [facility] (Rec: 04/10/22 11:49 [facility] [id number]) Hip Goniometric Range of Motion Hip Right Hip ROM WFL No Testing Position Supine Comments decreased R hip flexion due to c/o impingement, decreased Right hip extension and + rambo test Hip ROM Limitations Hip ROM Limitations Soft Tissue Tightness Comments right iliopsoas tightness, tightness in the quads on the right side, pt notes she feels impinged on the right. IF she tries to stretch her hip she will feel more irritated afterwards PT-OP-Q Treatments Start: 04/10/22 08:56 Freq: Status: Active Protocol: Document 06/24/22 13:00 [facility] (Rec: 06/24/22 15:11 [facility] [id number]) Therapeutic Exercises Supine Exercises supine happy baby Reps/Minutes hold 1-2 min piriformis stretch Reps/Minutes hold 1-2 min pelvic floor long holds Reps/Minutes 27 average and max of 37 Other Exercises olesya pose Reps/Minutes hold 1-2 min quadruped rock back Reps/Minutes x 20 Comments this was done with a lateral glide from mobilization belt Manual Therapy Treatment Manual Techniques manual hip posterior glides Body Position Supine Comments good tolerance for posterior glides and pt notes good relief gentle hip distraction Type right hip Comments today worked in supine and quadruped with mobilization with movement lateral hip distraction with hip flexion and ER. Pt notes good tolerance PT-OP-T Assessment and Plan Start: 04/10/22 08:56 Freq: Status: Active Protocol: Document 06/24/22 13:03 [facility] (Rec: 06/24/22 13:17 [facility] [id number]) Physical Therapy Assessment Goals 4 Impairment + rambo test on the right with iliopsoas tightness Short Term Goal (STG) Zaida is educated on stretches for the hip flexors for a HEP STG Duration 4 weeks Nursing Home Goal (LTG) Zaida demonstrates improved length of the iliopsoas on the right decreasing right anterior hip pain Anterior hip pain is still a issue for Zaida LTG Duration 12 weeks 3 Impairment urinary stress incontinence leaking 5-6 times per week with strong cough or sneeze or lifting Data Entry Machine Operator Goal (LTG) With improved pelvic floor strength Zaida reports a overall reduction in urinary leakage Zaida has significant reduction in leakage, she does feel close to leaking sometimes LTG Duration 12 weeks 2 Impairment Decreased strength of the pelvic floor Nursing Home Goal (LTG) Zaida is able to increase her strength from grade 3/5 MMT to grade 4/5 MMT for improved pelvic organ support GOAL MET to 4/5 MMT LTG Duration 12 weeks 1 Impairment Decreased endurance of the pelvic floor Short Term Goal (STG) Zaida is able to sustain a pelvic floor contraction in supine x 10 seconds GOAL MET STG Duration 4 weeks Data Entry Machine Operator Goal (LTG) Zaida is able to sustain a pelvic floor contraction in standing x 10 seconds Zaida is starting to work on standing pelvic floor exercises now LTG Duration 12 weeks Assessment Summary Assessment Zaida returns to PT today after not being seen since May 13. She has been seen for a total of 7 visits. She is doing better overall with her pelvic floor and she will start to work on pelvic floor isolations in upright positions. She has been dealing with thyroid issues and has not been able to work on her exercises as much due to fatigue. She is still feeling the right sided anterior hip pain. Her stretches were reviewed and I added in some self capsule stretching today which she tolerated well. Zaida would benefit from continued PT to address pelvic floor strength in upright positions and working to decrease c/o anterior hip pain Physical Therapy Plan Frequency and Duration Frequency of Treatment 1x/Week Duration of treatment (weeks) 12 Plan of Care Start Date 06/24/22 Plan of Care End Date 08/24/22 Therapeutic Interventions Therapeutic Interventions Home Exercise Program,Manual Therapy,Neuromuscular Re- education,Patient/Caregiver Education,Self-Care/Home Management,Soft Tissue Mobilization,Therapeutic Exercises Modalities Biofeedback,Cold Pack/Ice Massage,Electric Stimulation Next Visit Focus/Plan Next Note Type Treatment Note Next Visit Plan Begin EMG biofeedback in standing and work on capsule stretches of the right hip
--- NOTE | 2022-06-24 15:12 | PT.OPPOC ---
Physical, Occupational & Speech Therapy At [facility] Current Diagnoses Unspecified urinary incontinence (06/24/22) Visit Care Team Role Provider Type Tomeka Conway ND Primary Care Provider Non-Staff Specialty: Naturopathy Address: [address] [place] [address], [id number] Email: Elodia Garcia ND Attending Provider Non-Staff Family Provider Referring Provider Specialty: Naturopathy Address: [facility] [address], [address], [address] Email: Plan Of Care PT-OP-T Assessment and Plan Start: 04/10/22 08:56 Freq: Status: Active Protocol: Document 06/24/22 13:03 [facility] (Rec: 06/24/22 13:17 [facility] [id number]) Physical Therapy Assessment Goals 4 Impairment + rambo test on the right with iliopsoas tightness Short Term Goal (STG) Zaida is educated on stretches for the hip flexors for a HEP STG Duration 4 weeks [facility] Goal (LTG) Zaida demonstrates improved length of the iliopsoas on the right decreasing right anterior hip pain Anterior hip pain is still a issue for Zaida LTG Duration 12 weeks 3 Impairment urinary stress incontinence leaking 5-6 times per week with strong cough or sneeze or lifting [facility] Goal (LTG) With improved pelvic floor strength Zaida reports a overall reduction in urinary leakage Zaida has significant reduction in leakage, she does feel close to leaking sometimes LTG Duration 12 weeks 2 Impairment Decreased strength of the pelvic floor [facility] Goal (LTG) Zaida is able to increase her strength from grade 3/5 MMT to grade 4/5 MMT for improved pelvic organ support GOAL MET to 4/5 MMT LTG Duration 12 weeks 1 Impairment Decreased endurance of the pelvic floor Short Term Goal (STG) Zaida is able to sustain a pelvic floor contraction in supine x 10 seconds GOAL MET STG Duration 4 weeks Asbestos Removal Supervisor Goal (LTG) Zaida is able to sustain a pelvic floor contraction in standing x 10 seconds Zaida is starting to work on standing pelvic floor exercises now LTG Duration 12 weeks Assessment Summary Assessment Zaida returns to PT today after not being seen since May 13. She has been seen for a total of 7 visits. She is doing better overall with her pelvic floor and she will start to work on pelvic floor isolations in upright positions. She has been dealing with thyroid issues and has not been able to work on her exercises as much due to fatigue. She is still feeling the right sided anterior hip pain. Her stretches were reviewed and I added in some self capsule stretching today which she tolerated well. Zaida would benefit from continued PT to address pelvic floor strength in upright positions and working to decrease c/o anterior hip pain Physical Therapy Plan Frequency and Duration Frequency of Treatment 1x/Week Duration of treatment (weeks) 12 Plan of Care Start Date 06/24/22 Plan of Care End Date 08/24/22 Therapeutic Interventions Therapeutic Interventions Home Exercise Program,Manual Therapy,Neuromuscular Re- education,Patient/Caregiver Education,Self-Care/Home Management,Soft Tissue Mobilization,Therapeutic Exercises Modalities Biofeedback,Cold Pack/Ice Massage,Electric Stimulation Next Visit Focus/Plan Next Note Type Treatment Note Next Visit Plan Begin EMG biofeedback in standing and work on capsule stretches of the right hip Plan of Care Dates Plan of Care Start Date 06/24/22 Plan of Care End Date 08/24/22 Electronically Signed by: Rere Delgado, PT 06/24/22 9450 If you are in agreement with this Plan of Care, please return a signed and dated copy. I have reviewed this Plan of Care and certify that the skilled therapy services above are required to meet the patient?s needs. Physician Signature Date Printed Name and Credentials Clinical Instructor Signature Printed Name and Credentials
--- NOTE | 2022-08-26 17:30 | PT.OTN ---
Current Diagnoses Unspecified urinary incontinence (08/26/22) Physical Therapy Treatment Note PT-OP-A Visit Information Start: 04/10/22 08:56 Freq: Status: Active Protocol: Document 08/26/22 11:15 [facility] (Rec: 08/26/22 17:30 [facility] [id number]) Out-Patient Physical Therapy Visit Information Visit Information Visit Type Treatment Note Visit Start Time 11:25 Visit Stop Time 12:10 Total Visit Minutes 45 Visit Number 8 PT-OP-B Current Condition Start: 04/10/22 08:56 Freq: Status: Active Protocol: Document 04/10/22 11:20 [facility] (Rec: 04/10/22 11:49 [facility] [id number]) Current Condition History of Current Condition Onset Date 2006 Current Complaints urinary stress incontinence, right sided hip pain and tightness History of Current Condition oldest is 20 years old, she started noticiing when her second one was a baby and now he is 18, she noticed when running or coughing, her second baby was breach and she did tear, the past 3-5 years she has notcied more leaking and now she notes she leaks more. Lifting can cause leakage. Her bladder does not wake her up at night. She notices hormonal cyclical differences. She has a small hernia on the inguinal region, once and awhile it will be tender. 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 Treatment Goals Patient/Caregiver Goals to reduce overall symptoms of urinary stress incontinence PT-OP-C Subjective Start: 04/10/22 08:56 Freq: Status: Active Protocol: Document 08/26/22 11:15 [facility] (Rec: 08/26/22 17:30 [facility] [id number]) OP-PT Subjective Patient Comments Patient Comments Zaida reports she has been hiking and has not been lifting as much weights. Her hip does better when she isn't pushing the weights. She is still dealing with her thyroid issues as well. PT-OP-I Pelvic Floor Start: 04/10/22 08:56 Freq: Status: Active Protocol: Document 06/24/22 13:17 [facility] (Rec: 06/24/22 13:24 [facility] [id number]) Pelvic Floor Assessment Contraction Ability Voluntary Contraction Moderate Voluntary Relaxation Moderate Manual Muscle Testing Left 4 Manual Muscle Testing Right 4 Manual Muscle Testing Anterior 4 Manual Muscle Testing Posterior 4 PT-OP-J Posture/Palpation/Skin Start: 04/10/22 08:56 Freq: Status: Active Protocol: Document 04/10/22 11:20 [facility] (Rec: 04/10/22 11:49 [facility] [id number]) Palpation Assessment Location right iliopsoas Palpation Location right iliopsoas Palpation Findings Soft Tissue Tightness,Muscle Guarding,Tenderness Palpation Details + rambo test left inguinal hernia Palpation Location left inguinal region Palpation Findings Tenderness Palpation Details small inguinal hernia on the left side PT-OP-K Range of Motion Start: 04/10/22 08:56 Freq: Status: Active Protocol: Document 04/10/22 11:20 [facility] (Rec: 04/10/22 11:49 [facility] [id number]) Hip Goniometric Range of Motion Hip Right Hip ROM WFL No Testing Position Supine Comments decreased R hip flexion due to c/o impingement, decreased Right hip extension and + rambo test Hip ROM Limitations Hip ROM Limitations Soft Tissue Tightness Comments right iliopsoas tightness, tightness in the quads on the right side, pt notes she feels impinged on the right. IF she tries to stretch her hip she will feel more irritated afterwards PT-OP-Q Treatments Start: 04/10/22 08:56 Freq: Status: Active Protocol: Document 08/26/22 11:15 [facility] (Rec: 08/26/22 17:30 [facility] [id number]) Therapeutic Exercises Supine Exercises supine happy baby Reps/Minutes hold 1-2 min piriformis stretch Reps/Minutes hold 1-2 min roll outs with theraband Reps/Minutes 2 x 10 reps supine ball squeeze with pelvic floor contraction Reps/Minutes x 10 reps quick flicks Reps/Minutes x 10 reps pelvic floor long holds Reps/Minutes 27 average and max of 37 Self-Care/Home Management Treatment Education Patient Education Home Exercise Program Other Education review of HEP PT-OP-T Assessment and Plan Start: 04/10/22 08:56 Freq: Status: Active Protocol: Document 08/26/22 11:15 [facility] (Rec: 08/26/22 17:30 [facility] [id number]) Physical Therapy Assessment Goals 4 Impairment + rambo test on the right with iliopsoas tightness Short Term Goal (STG) Zaida is educated on stretches for the hip flexors for a HEP GOAL MET STG Duration 4 weeks [employer] Gl[employer] Drier Goal (LTG) Zaida demonstrates improved length of the iliopsoas on the right decreasing right anterior hip pain Anterior hip pain is still a issue for Zaida but doing better at this point as she has backed off on squats and lifts LTG Duration 12 weeks 3 Impairment urinary stress incontinence leaking 5-6 times per week with strong cough or sneeze or lifting [employer] Gl[employer] Drier Goal (LTG) With improved pelvic floor strength Zaida reports a overall reduction in urinary leakage Zaida has significant reduction in leakage, she does feel close to leaking sometimes LTG Duration 12 weeks 2 Impairment Decreased strength of the pelvic floor Pearl Glue Drier Goal (LTG) Zaida is able to increase her strength from grade 3/5 MMT to grade 4/5 MMT for improved pelvic organ support GOAL MET to 4/5 MMT LTG Duration 12 weeks 1 Impairment Decreased endurance of the pelvic floor Short Term Goal (STG) Zaida is able to sustain a pelvic floor contraction in supine x 10 seconds GOAL MET STG Duration 4 weeks Shelter Goal (LTG) Zaida is able to sustain a pelvic floor contraction in standing x 10 seconds Zaida is starting to work on standing pelvic floor exercises now LTG Duration 12 weeks Assessment Summary Assessment Zaida returns to PT after not being seen since June 24. She has not been as good about doing her pelvic floor exercises but she hasn't noticed any leakage although she states she feels as if she could leak. We reviewed her HEP and I encouraged keeping up with her pelvic floor 2-3 times per week. At this point she is I with her home program and will be discharged to a HEP Physical Therapy Plan Discharge Physical Therapy Discharge Reasons Goals Met
--- NOTE | 2023-04-21 08:48 | PT.OPDS ---
Current Diagnoses Unspecified urinary incontinence (08/26/22) Visit Care Team Role Provider Type Tomeka Conway ND Primary Care Provider Non-Staff Specialty: Naturopathy Address: [address] [place] [address], [id number] Email: Annabelle Garcia ND Attending Provider Non-Staff Family Provider Referring Provider Specialty: Naturopathy Address: [facility] Sandra Adams, [address], [place], [address] Email: Visit Number Visit Number 8 Discharge Summary PT-OP-B Current Condition Start: 04/10/22 08:56 Freq: Status: Active Protocol: Document 04/10/22 11:20 [facility] (Rec: 04/10/22 11:49 [facility] [id number]) Current Condition History of Current Condition Onset Date 2006 Current Complaints urinary stress incontinence, right sided hip pain and tightness History of Current Condition oldest is 20 years old, she started noticiing when her second one was a baby and now he is 18, she noticed when running or coughing, her second baby was breach and she did tear, the past 3-5 years she has notcied more leaking and now she notes she leaks more. Lifting can cause leakage. Her bladder does not wake her up at night. She notices hormonal cyclical differences. She has a small hernia on the inguinal region, once and awhile it will be tender. 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 Treatment Goals Patient/Caregiver Goals to reduce overall symptoms of urinary stress incontinence PT-OP-C Subjective Start: 04/10/22 08:56 Freq: Status: Active Protocol: Document 08/26/22 11:15 [facility] (Rec: 08/26/22 17:30 [facility] [id number]) OP-PT Subjective Patient Comments Patient Comments Zaida reports she has been hiking and has not been lifting as much weights. Her hip does better when she isn't pushing the weights. She is still dealing with her thyroid issues as well. PT-OP-I Pelvic Floor Start: 04/10/22 08:56 Freq: Status: Active Protocol: Document 06/24/22 13:17 [facility] (Rec: 06/24/22 13:24 [facility] [id number]) Pelvic Floor Assessment Contraction Ability Voluntary Contraction Moderate Voluntary Relaxation Moderate Manual Muscle Testing Left 4 Manual Muscle Testing Right 4 Manual Muscle Testing Anterior 4 Manual Muscle Testing Posterior 4 PT-OP-J Posture/Palpation/Skin Start: 04/10/22 08:56 Freq: Status: Active Protocol: Document 04/10/22 11:20 [facility] (Rec: 04/10/22 11:49 [facility] [id number]) Palpation Assessment Location right iliopsoas Palpation Location right iliopsoas Palpation Findings Soft Tissue Tightness,Muscle Guarding,Tenderness Palpation Details + rambo test left inguinal hernia Palpation Location left inguinal region Palpation Findings Tenderness Palpation Details small inguinal hernia on the left side PT-OP-K Range of Motion Start: 04/10/22 08:56 Freq: Status: Active Protocol: Document 04/10/22 11:20 [facility] (Rec: 04/10/22 11:49 [facility] [id number]) Hip Goniometric Range of Motion Hip Right Hip ROM WFL No Testing Position Supine Comments decreased R hip flexion due to c/o impingement, decreased Right hip extension and + rambo test Hip ROM Limitations Hip ROM Limitations Soft Tissue Tightness Comments right iliopsoas tightness, tightness in the quads on the right side, pt notes she feels impinged on the right. IF she tries to stretch her hip she will feel more irritated afterwards PT-OP-T Assessment and Plan Start: 04/10/22 08:56 Freq: Status: Active Protocol: Document 08/26/22 11:15 [facility] (Rec: 08/26/22 17:30 [facility] [id number]) Physical Therapy Assessment Goals 4 Impairment + rambo test on the right with iliopsoas tightness Short Term Goal (STG) Zaida is educated on stretches for the hip flexors for a HEP GOAL MET STG Duration 4 weeks Closing Specialist Goal (LTG) Zaida demonstrates improved length of the iliopsoas on the right decreasing right anterior hip pain Anterior hip pain is still a issue for Zaida but doing better at this point as she has backed off on squats and lifts LTG Duration 12 weeks 3 Impairment urinary stress incontinence leaking 5-6 times per week with strong cough or sneeze or lifting Long-Term Goal (LTG) With improved pelvic floor strength Zaida reports a overall reduction in urinary leakage Zaida has significant reduction in leakage, she does feel close to leaking sometimes LTG Duration 12 weeks 2 Impairment Decreased strength of the pelvic floor Long-Term Goal (LTG) Zaiad is able to increase her strength from grade 3/5 MMT to grade 4/5 MMT for improved pelvic organ support GOAL MET to 4/5 MMT LTG Duration 12 weeks 1 Impairment Decreased endurance of the pelvic floor Short Term Goal (STG) Zaida is able to sustain a pelvic floor contraction in supine x 10 seconds GOAL MET STG Duration 4 weeks Long-Term Goal (LTG) Zaida is able to sustain a pelvic floor contraction in standing x 10 seconds Zaida is starting to work on standing pelvic floor exercises now LTG Duration 12 weeks Assessment Summary Assessment Zaida returns to PT after not being seen since June 24. She has not been as good about doing her pelvic floor exercises but she hasn't noticed any leakage although she states she feels as if she could leak. We reviewed her HEP and I encouraged keeping up with her pelvic floor 2-3 times per week. At this point she is I with her home program and will be discharged to a [facility] Physical Therapy Plan Discharge Physical Therapy Discharge Reasons Goals Met
== END 2023-04-27 15:04 | disposition home or self-care (01) ==
LOC: PHYS 11:15
PROVIDERS: Family Provider Naturopath; PCP Naturopath; Referring Provider Naturopath; Visit Provider Naturopath
DX: R32 Unspecified urinary incontinence (principal)
CPT/HCPCS: 97110; 97140; 97161; 97535

== ENCOUNTER → 2022-12-10 | Outpatient (CLI) | payer OTHER, SELFPAY ==
--- NOTE | 2022-12-10 | DI.US.S_ITS ---
PROCEDURE: US THYROID INDICATIONS: AUTOIMMUNE THYROIDITIS TECHNIQUE: Real-time scanning was performed of the thyroid gland, with image documentation. COMPARISON: None. FINDINGS: Right: Thyroid lobe measures 2.3 x 0.6 x 1.0 cm, and is diffusely heterogeneous in echotexture. Left: Thyroid lobe measures 3.1 x 0.7 x 0.8 cm, and is diffusely heterogeneous in echotexture. Isthmus: 2 mm thick. No discrete thyroid nodule is identified. No neck soft tissue lymphadenopathy is seen. IMPRESSION: 1. Atrophic appearing thyroid gland with diffusely heterogeneous thyroid parenchymal echotexture. No discrete thyroid nodule is seen. No neck soft tissue lymphadenopathy. ACR TI-RADS definitions and recommendations: TI-RADS 1 (benign): 0 points. FNA not needed. TI-RADS 2 (not suspicious): 2 points. FNA not needed. TI-RADS 3 (mildly suspicious): 3 points. * FNA if 2.5 cm or larger, follow up if 1.5 cm or larger (at 1, 3, and 5 years). TI-RADS 4 (moderately suspicious): 4-6 points. * FNA if 1.5 cm or larger, follow up if 1 cm or larger (at 1, 2, 3, and 5 years). TI-RADS 5 (highly suspicious): 7 points or more. * FNA if 1 cm or larger, follow up if 0.5 cm or larger (every year for 5 years). Dictated by: Morales Avendano M.D. on 12/10/2022 at 16:43 Approved by: Morales Avendano M.D. on 12/10/2022 at 16:44
--- NOTE | 2022-12-10 | DI.MG.S_ITS ---
BILATERAL DIGITAL SCREENING MAMMOGRAM 3D/2D WITH CAD: 12/10/2022 CLINICAL: Routine screening. Comparison is made to exam dated: 12/06/2020 mammogram - Outside facility. Both breasts are heterogeneously dense, which may obscure small masses (category c / 51-75% glandular tissue). Current study was also evaluated with a Computer Aided Detection (CAD) system. No significant masses, calcifications, or other findings are seen in either breast. There has been no significant interval change. IMPRESSION: NEGATIVE There is no mammographic evidence of malignancy. A 1 year screening mammogram is recommended. Based on the Tyrer Cuzick model (a risk assessment model) the patient's lifetime risk is 13.2% and her 10 year risk is 3.0%. According to the ACR, ACS, and NCCN guidelines, an annual breast MRI exam along with mammogram is recommended if the patient's lifetime risk is 20% or greater. This exam was interpreted at Station ID: [id number]. NOTE: For mammograms, a report in lay terms will be sent to the patient. Approximately 15% of breast malignancies will not be visualized mammographically. In the management of a palpable breast mass, a negative mammogram must not discourage biopsy of a clinically suspicious lesion. Electronically Signed By: Jeff stevenson/[email or web address]:12/21/2022 14:31:20 letter sent: Normal Exam ACR BI-RADS Category 1: Negative [id number]
== END ==
LOC: MAMMO 15:02
PROVIDERS: Family Provider Naturopath; PCP Naturopath; Referring Provider Naturopath; Visit Provider Naturopath
DX: Z12.31 Encounter for screening mammogram for malignant neoplasm of breast (principal); E06.3 Autoimmune thyroiditis; E04.9 Nontoxic goiter, unspecified
CPT/HCPCS: 76536; 77063; 77067

== ENCOUNTER → 2024-02-02 17:26 | Outpatient (CLI) | payer OTHER, SELFPAY ==
--- NOTE | 2024-02-02 17:27 | DI.MG.S_ITS ---
BILATERAL DIGITAL SCREENING MAMMOGRAM 3D/2D WITH CAD: 02/02/2024 CLINICAL: Routine screening. Comparison is made to exams dated: 12/10/2022 mammogram - [facility] and 12/06/2020 mammogram - Outside facility. The breasts are heterogeneously dense, which may obscure small masses (category c / 51-75% glandular tissue). Current study was also evaluated with a Computer Aided Detection (CAD) system. No significant masses, calcifications, or other findings are seen in either breast. There has been no significant interval change. IMPRESSION: NEGATIVE There is no mammographic evidence of malignancy. A 1 year screening mammogram is recommended. Based on the Tyrer Cuzick model (a risk assessment model) the patient's lifetime risk is 11.6% and her 10 year risk is 2.7%. According to the ACR, ACS, and NCCN guidelines, an annual breast MRI exam along with mammogram is recommended if the patient's lifetime risk is 20% or greater. This exam was interpreted at Station ID: [id number]. NOTE: For mammograms, a report in lay terms will be sent to the patient. Approximately 15% of breast malignancies will not be visualized mammographically. In the management of a palpable breast mass, a negative mammogram must not discourage biopsy of a clinically suspicious lesion. Electronically Signed By: Karen Greco M.D., Ph.D. melissa/velasquez:02/04/2024 16:58:24 letter sent: Normal Exam ACR BI-RADS Category 1: Negative
== END ==
LOC: MAMMO 17:27
PROVIDERS: Family Provider Naturopath; PCP Naturopath; Referring Provider Naturopath; Visit Provider Naturopath
DX: Z12.31 Encounter for screening mammogram for malignant neoplasm of breast (principal); R92.333 Mammographic heterogeneous density, bilateral breasts
CPT/HCPCS: 77063; 77067

== ENCOUNTER → 2024-08-05 18:53 | Outpatient (CLI) | payer OTHER, SELFPAY ==
--- NOTE | 2024-08-05 18:56 | DI.MRI.S_ITS ---
PROCEDURE: MR ANKLE RT WO CON INDICATIONS: fracture of distal end of right fibula TECHNIQUE: Noncontrast sagittal T1 spin echo and T2 fast spin echo with fat saturation, axial proton density fast spin echo and T2 fast spin echo with fat saturation, coronal T1 spin echo and T2 fast spin echo with fat saturation through the ankle/hindfoot. COMPARISON: [facility] [place], RG, ANKLE MIN 3VW (RT), 06/27/2024, 7:25. FINDINGS: Image quality: Screw fixation in the midfoot, creating artifacts and limits evaluation. Tendons: The posterior tibialis, flexor digitorum longus are unremarkable. The flexor hallucis longus is unremarkable. The extensor tendons are unremarkable. Longitudinal split tear of the peroneal brevis. The peroneal longus is unremarkable. Mild tenosynovitis of the peroneal tendons, at the level of the lateral malleolus. Mild tendinosis of the distal Achilles tendon, without tear. Ligaments: The anterior and posterior tibiofibular ligaments are intact. The anterior and posterior talofibular ligaments are intact. The calcaneofibular ligament is intact. Mild sprain of the deep portion deltoid ligament. Sinus tarsi: No fibrosis Plantar fascia: Unremarkable Muscles: Normal in signal Bones: Nondisplaced fracture of the lateral malleolus with mild marrow edema, favor acute to subacute. No osteochondral lesion of the talus dome. Screw fixation of the midfoot, likely through the navicula, creating artifacts and limits evaluation. Multifocal degenerative changes in the midfoot, most pronounced and likely severe at the intermediate cuneiform and the navicular articulation. Small tibiotalar effusion. IMPRESSION: 1. Screw fixation in the midfoot, creating artifacts and limits evaluation. 2. Longitudinal split tear of the peroneal brevis. 3. Nondisplaced fracture of the lateral malleolus, favoring acute to subacute. 4. Multilevel degenerative changes in the foot, most pronounced and likely severe at the intermediate cuneiform and the navicular articulation. Dictated by: Dinora Reyes M.D. on 08/08/2024 at 9:19 Approved by: Dinora Reyes M.D. on 08/08/2024 at 9:29
== END ==
PROVIDERS: Family Provider Naturopath; PCP Naturopath; Referring Provider Orthopaedic Surgery Foot and Ankle Surgery; Visit Provider Orthopaedic Surgery Foot and Ankle Surgery
DX: S82.821 Torus fracture of lower end of right fibula (principal); M65.971 Unspecified synovitis and tenosynovitis, right ankle and foot
CPT/HCPCS: 73721

== ENCOUNTER → 2024-09-24 09:59 | Outpatient (CLI) | payer OTHER, SELFPAY ==
--- NOTE | 2024-09-24 10:01 | DI.CT.S_ITS ---
PROCEDURE: CT FOOT RIGHT WITHOUT CON INDICATIONS: arthritis right foot TECHNIQUE: Noncontrast 1-1.5 mm axial sections acquired from above the knee joint to the bottom of the calcaneus, with coronal and sagittal reformats. COMPARISON: [facility] [place], RG, ANKLE MIN 3VW (RT), 06/27/2024, 7:25. [facility], MR, MR ANKLE RT WO CON, 08/05/2024, 19:13. FINDINGS: Image quality: Diagnostic. Bones: Alignment of right knee and right lower leg is anatomic. No fracture or dislocation. No suspicious intraosseous lesions. 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 Slight lateral subluxation of patella is also noted. There is midfoot collapse with superior subluxation of the navicular bone. Medial fixation screw extending from navicular bone to distal talus is seen without significant bony union achieved at the talonavicular joint. Severe osteoarthritic changes throughout talonavicular joint, navicular cuneiform joints and articulation between lateral cuneiform and cuboid. Moderate osteoarthritic changes in subtalar joint and calcaneal cuboid joint is seen. No acute fracture is noted. No obvious hardware loosening or failure. No suspicious intraosseous lesion. No significant osteoarthritic changes are noted in forefoot joints. Soft tissues: There is no soft tissue mass or drainable fluid collection. No abnormal soft tissue calcifications. No gross full-thickness tendon or muscle rupture. No significant joint effusion or calcified intra-articular loose bodies. IMPRESSION: 1. Midfoot collapse with superior subluxation of talus in relation to navicular bone. Fixation screw extending from navicular bone to distal talus without significant bony union at the talonavicular joint. No obvious hardware loosening or failure. No acute fracture or dislocation. 2. Severe osteoarthritic changes involving talonavicular joint, navicular cuneiform joints and articulation between lateral cuneiform and talus. Moderate osteoarthritic changes are noted in rest of the midfoot and hindfoot. No significant forefoot joint osteoarthritic changes are seen. No suspicious bony lesions. 3. No full-thickness tendon rupture. No abnormal soft tissue calcifications. No soft tissue mass or drainable fluid collection. Dictated by: Morales Avendano M.D. on 09/25/2024 at 20:13 Approved by: Morales Avendano M.D. on 09/25/2024 at 20:22
== END ==
LOC: CT 10:00
PROVIDERS: Family Provider Naturopath; PCP Naturopath; Referring Provider Orthopaedic Surgery Foot and Ankle Surgery; Visit Provider Orthopaedic Surgery Foot and Ankle Surgery
DX: M19.071 Primary osteoarthritis, right ankle and foot (principal); M17.11 Unilateral primary osteoarthritis, right knee; S93.01XA Subluxation of right ankle joint, initial encounter
CPT/HCPCS: 73700